=== PATIENT | female | born 1990 | race Caucasian/White ===

== ENCOUNTER 2017-05-01 08:00 | Day surgery (SDC) | payer OTHER ==
[~2017-05-01] VITALS: Ht 157.5 cm; Wt 56.2 kg
[~2017-05-01 08:00] MED LIST: LEXAPRO10 MG PO
[2017-05-01 08:38] VITALS: BP 98/50
[2017-05-01] MEDS ORDERED: NORCO 5/3251 TABLET PO (11:03)
[2017-05-01 11:42] VITALS: BP 112/62
[2017-05-01 12:37] LABS: INTERNAL CONTROL VALID? YES
[2017-05-01 12:40] VITALS: BP 115/59
== END 2017-05-01 12:50 | disposition home or self-care (01) ==
LOC: SDC 08:00
PROVIDERS: Surgery
PROC: 0HBT0ZX Excision of Right Breast, Open Approach, Diagnostic (ICD-10-PCS; principal; 2017-05-01)
DX: D24.1 Benign neoplasm of right breast (principal); F17.210 Nicotine dependence, cigarettes, uncomplicated; Z80.8 Family history of malignant neoplasm of other organs or systems
CPT/HCPCS: 84703; 88307; J1100; J2250; J2405; J3010